=== PATIENT | male | born 1970 | race Caucasian/White ===

== ENCOUNTER 2023-12-04 10:23 | Inpatient (IN) ==
[2023-12-04] MEDS ORDERED: IOPAMIDOL 100 ML BOTTLE IV ONE (10:24)
[2023-12-04] MEDS: 0.9 % SODIUM CHLORIDE 1,000 ML IV ONE (10:50)
[2023-12-04 11:14] LABS: Basophils # (Auto) 0.03 K/mcL (0.00-0.30); Basophils % (Auto) 0.2 % (0.0-2.0); Eosinophils # (Auto) 0.07 K/mcL (0.00-0.70); Eosinophils % (Auto) 0.4 % (0.0-7.0); Hematocrit 44.5 % (40.1-51.0); Hemoglobin 15.4 g/dL (13.7-17.5); Lymphocytes # (Auto) 1.81 K/mcL (1.50-4.80); Mean Cell Volume 101.8 fL (80.0-100.0); Mean Corpuscular HGB Conc 34.6 g/dL (31.0-36.0); Mean Platelet Volume 9.4 fL (8.8-12.5); Monocytes % (Auto) 7.7 % (1.0-12.0); Neutrophils % (Auto) 81.1 % (38.0-78.0); Platelet Count 293 K/mcL (140-440); RBC 4.37 M/mcL (4.63-6.08); Red Cell Distribution Width 14.1 % (11.5-14.5); WBC 18.2 K/mcL (4.5-11.0)
[2023-12-04 11:21] LABS: Alcohol, Blood < 10.1 mg/dL; Alcohol,Blood < 0.010 gm/dL (<0.010)
[2023-12-04 11:23] LABS: ALT/SGPT 59 U/L (<40); AST/SGOT 158 U/L (<40); Albumin/Globulin Ratio 0.8 (1.0-2.3); Alkaline Phosphatase 144 U/L (39-117); Blood Urea Nitrogen 18 mg/dL (6-20); Calcium 9.3 mg/dL (8.6-10.4); Carbon Dioxide 22 mmol/L (22-30); Chloride 85 mmol/L (96-108); Glomerular Filtration Rate 113; Glucose 96 mg/dL (70-105)
[2023-12-04 12:02] LABS: INR 1.2 (0.9-1.1); Prothrombin Time 15.9 sec (11.9-14.5)
[2023-12-04 12:33] LABS: Hepatitis A Antibody IgM Non-Reactive (Non-Reactive); Hepatitis B Surface Antigen Negative (Negative); Hepatitis C Virus Antibody Non-Reactive (Non-Reactive)
[2023-12-04 13:59] LABS: Lymphocytes % 7 % (15-49); Monocytes % (Manual) 5 % (1-12); Platelet Estimate NORMAL (Normal); RBC Morphology NORMAL (Normal); Reactive Lymphocytes 5 % (0-2); Segmented Neutrophils % 83 % (38-78)
[2023-12-04] MEDS ORDERED: POTASSIUM CHLORIDE 20 MEQ TABLET PO PRN ×2 (14:55)
[2023-12-04] MEDS ORDERED: MAGNESIUM SULFATE 2 GM/50 ML BAG IV PRN (14:55)
[2023-12-04] MEDS ORDERED: IPRATROPIUM/ALBUTEROL 3 ML AMPUL.NEB NEB PRN (14:55)
[2023-12-04] MEDS ORDERED: POLYETHYLENE GLYCOL 3350 17 GM PACKET PO PRN (14:55)
[2023-12-04] MEDS ORDERED: POTASSIUM CHLORIDE 40 MEQ in DEXTROSE 5% IN WATER 500 ML IV PRN (14:55)
[2023-12-04] MEDS ORDERED: SENNOSIDES 1 TABLET PO PRN (14:55)
[2023-12-04] MEDS ORDERED: LACTULOSE 20 GM/30 ML ORAL.SOL PO PRN (14:55)
[2023-12-04] MEDS: MULTIVIT,THER IRON,CA,FA & MIN 1 TABLET PO SCH (15:20)
[2023-12-04] MEDS: FOLIC ACID 1 MG TABLET PO SCH (15:20)
[2023-12-04] MEDS: SODIUM CHLORIDE 1 GM TABLET PO SCH (15:21)
[2023-12-04] MEDS: ALBUMIN HUMAN 12.5 GM/50 ML VIAL IV ONE ×2 (15:21→21:55)
[2023-12-04] MEDS: 0.9 % SODIUM CHLORIDE 10 ML SYRINGE IV SCH (15:22)
[2023-12-04 15:43] LABS: Amylase,Peritoneal Fluid 16 U/L; Glucose,Peritoneal Fluid 96 mg/dL; LDH,Peritoneal Fluid 43 U/L; Total Protein,Peritoneal Fluid 1.4 gm/dL
[2023-12-04 16:08] LABS: Monocyte,Peritoneal Fluid 55 %; Neutrophils,Peritoneal Fluid 13 %; Nucleated Cel,Peritoneal Fluid 176 /cumm; RBC,Peritoneal Fluid <50,000 /cumm
[2023-12-04] MEDS: THIAMINE 100 MG/ML VIAL ONE (17:01)
[2023-12-04] MEDS: THIAMINE 100 MG in 0.9 % SODIUM CHLORIDE 50 ML IV SCH (17:02)
[2023-12-04 17:43] LABS: Appearance,Urine CLEAR (Clear); Color,Urine AMBER; Culture Indicated,Urine No; Glucose,Urine (UA) Negative (Negative); Ketones,Urine 5 mg/dL (Negative); Leukocyte Esterase,Urine Negative /uL (Negative); Mucus,Urine MANY /hpf; Nitrate,Urine Negative (Negative); Protein,Urine 30 mg/dL (Negative); Specific Gravity,Urine > 1.060 (1.000-1.035); Urine Blood Negative (Negative); Urine Hyaline Cast 3 /lph (0-2); Urine RBC 0 /hpf (0-3); Urine Squamous Epithelial Cell 0 /hpf (0-4); Urine WBC 0 /hpf (0-4)
[2023-12-04] MEDS: diphenhydrAMINE 25 MG CAPSULE PO PRN (21:55)
[2023-12-04] MEDS: ONDANSETRON 4 MG/2 ML VIAL IV PRN (22:03)
[2023-12-04] MEDS: diphenhydrAMINE 25 MG CAPSULE ONE (22:06)
[2023-12-04] MEDS: MELATONIN 3 MG TABLET PO SCH (22:08)
[2023-12-05 06:25] LABS: Basophils # (Auto) 0.03 K/mcL (0.00-0.30); Basophils % (Auto) 0.2 % (0.0-2.0); Eosinophils % (Auto) 0.7 % (0.0-7.0); Hematocrit 40.4 % (40.1-51.0); Hemoglobin 13.8 g/dL (13.7-17.5); Lymphocytes # (Auto) 1.13 K/mcL (1.50-4.80); Lymphocytes % (Auto) 8.2 % (15.5-49.0); Mean Cell Volume 105.5 fL (80.0-100.0); Mean Corpuscular HGB Conc 34.2 g/dL (31.0-36.0); Mean Platelet Volume 9.4 fL (8.8-12.5); Monocytes # (Auto) 0.96 K/mcL (0.10-0.90); Neutrophils % (Auto) 83.5 % (38.0-78.0); Platelet Count 208 K/mcL (140-440); RBC 3.83 M/mcL (4.63-6.08); Red Cell Distribution Width 14.5 % (11.5-14.5); WBC 13.8 K/mcL (4.5-11.0)
[2023-12-05 07:06] LABS: ALT/SGPT 49 U/L (<40); AST/SGOT 142 U/L (<40); Albumin 2.9 gm/dL (3.2-5.2); Alkaline Phosphatase 110 U/L (39-117); Bilirubin,Direct 3.9 mg/dL (<0.3); Bilirubin,Total 5.7 mg/dL (0.1-1.0); Blood Urea Nitrogen 17 mg/dL (6-20); Calcium 8.7 mg/dL (8.6-10.4); Carbon Dioxide 21 mmol/L (22-30); Chloride 89 mmol/L (96-108); Glomerular Filtration Rate 113; Glucose 98 mg/dL (70-105); Lactate Dehydrogenase 219 U/L (135-225); Phosphorous 2.5 mg/dL (2.5-4.5); Triglycerides 83 mg/dL (<150); Uric Acid 2.9 mg/dL (2.5-8.0)
[2023-12-05] MEDS: FUROSEMIDE 20 MG TABLET PO SCH (10:07)
[2023-12-05] MEDS: ENOXAPARIN 40 MG/0.4 ML SYRINGE SQ SCH (10:07)
[2023-12-05] MEDS: SPIRONOLACTONE 25 MG TABLET PO SCH (10:07)
[2023-12-05] MEDS: THIAMINE 100 MG/ML VIAL ONE (11:13)
[2023-12-05] MEDS: ACETAMINOPHEN 325 MG TABLET PO PRN (14:04)
[2023-12-05] MEDS: SUCRALFATE 1 GM/10 ML ORAL.SUSP PO SCH (14:46)
[2023-12-05] MEDS: PANTOPRAZOLE 40 MG VIAL IV SCH (14:46)
[2023-12-05] MEDS: oxyCODONE IR 5 MG TABLET PO PRN (14:46)
[2023-12-05] MEDS ORDERED: MELATONIN 3 MG TABLET PO SCH (19:00)
[2023-12-06] MEDS: ALBUMIN HUMAN 12.5 GM/50 ML VIAL IV ONE (00:07)
[2023-12-06 04:48] LABS: Sodium, Urine Random < 20 mmol/L
[2023-12-06 04:54] LABS: Osmolality,Urine 624 mOSM/kg (80-1000)
[2023-12-06 06:02] LABS: Basophils # (Auto) 0.02 K/mcL (0.00-0.30); Basophils % (Auto) 0.2 % (0.0-2.0); Eosinophils % (Auto) 0.8 % (0.0-7.0); Hematocrit 35.4 % (40.1-51.0); Lymphocytes # (Auto) 1.17 K/mcL (1.50-4.80); Lymphocytes % (Auto) 9.5 % (15.5-49.0); Mean Corpuscular HGB Conc 33.9 g/dL (31.0-36.0); Mean Platelet Volume 9.4 fL (8.8-12.5); Monocytes # (Auto) 0.79 K/mcL (0.10-0.90); Monocytes % (Auto) 6.4 % (1.0-12.0); Neutrophils % (Auto) 82.5 % (38.0-78.0); Platelet Count 200 K/mcL (140-440); RBC 3.37 M/mcL (4.63-6.08); Red Cell Distribution Width 14.4 % (11.5-14.5); WBC 12.3 K/mcL (4.5-11.0)
[2023-12-06 06:24] LABS: ALT/SGPT 47 U/L (<40); AST/SGOT 119 U/L (<40); Albumin 2.7 gm/dL (3.2-5.2); Alkaline Phosphatase 104 U/L (39-117); Bilirubin,Direct 3.1 mg/dL (<0.3); Bilirubin,Total 4.2 mg/dL (0.1-1.0); Blood Urea Nitrogen 18 mg/dL (6-20); Calcium 8.5 mg/dL (8.6-10.4); Carbon Dioxide 23 mmol/L (22-30); Chloride 92 mmol/L (96-108); Globulin 2.7 gm/dL (2.2-3.7); Glomerular Filtration Rate 106; Glucose 103 mg/dL (70-105); Lactate Dehydrogenase 150 U/L (135-225); Phosphorous 2.3 mg/dL (2.5-4.5); Triglycerides 64 mg/dL (<150); Uric Acid 3.2 mg/dL (2.5-8.0)
[2023-12-06] MEDS ORDERED: FUROSEMIDE 20 MG TABLET PO SCH (09:00)
[2023-12-06] MEDS: ALBUMIN HUMAN 25 GM/100 ML BAG IV SCH (09:13)
[2023-12-06] MEDS: 0.9 % SODIUM CHLORIDE 250 ML IV ONE ×3 (13:34→21:46)
[2023-12-06] MEDS: ALBUMIN HUMAN 25 GM/100 ML BAG IV ONE (21:35)
[2023-12-07 06:18] LABS: Basophils # (Auto) 0.03 K/mcL (0.00-0.30); Basophils % (Auto) 0.3 % (0.0-2.0); Eosinophils % (Auto) 1.1 % (0.0-7.0); Hematocrit 30.1 % (40.1-51.0); Hemoglobin 10.2 g/dL (13.7-17.5); Lymphocytes % (Auto) 9.9 % (15.5-49.0); Mean Cell Volume 105.2 fL (80.0-100.0); Mean Corpuscular HGB Conc 33.9 g/dL (31.0-36.0); Mean Platelet Volume 9.5 fL (8.8-12.5); Monocytes # (Auto) 0.58 K/mcL (0.10-0.90); Monocytes % (Auto) 6.4 % (1.0-12.0); Platelet Count 163 K/mcL (140-440); RBC 2.86 M/mcL (4.63-6.08); Red Cell Distribution Width 14.7 % (11.5-14.5); WBC 9.1 K/mcL (4.5-11.0)
[2023-12-07 06:46] LABS: ALT/SGPT 35 U/L (<40); AST/SGOT 90 U/L (<40); Albumin 3.1 gm/dL (3.2-5.2); Albumin/Globulin Ratio 1.6 (1.0-2.3); Alkaline Phosphatase 97 U/L (39-117); Bilirubin,Direct 2.3 mg/dL (<0.3); Bilirubin,Total 3.5 mg/dL (0.1-1.0); Blood Urea Nitrogen 12 mg/dL (6-20); Calcium 8.5 mg/dL (8.6-10.4); Carbon Dioxide 21 mmol/L (22-30); Chloride 91 mmol/L (96-108); Globulin 1.9 gm/dL (2.2-3.7); Glomerular Filtration Rate 113; Glucose 105 mg/dL (70-105); Lactate Dehydrogenase 179 U/L (135-225); Phosphorous 2.6 mg/dL (2.5-4.5); Triglycerides 53 mg/dL (<150)
[2023-12-07] MEDS: MIDODRINE 5 MG TABLET PO SCH (08:30)
[2023-12-07] MEDS: THIAMINE 100 MG TABLET PO SCH (09:14)
[2023-12-07] MEDS: FUROSEMIDE 20 MG/2 ML VIAL IV ONE (09:14)
[2023-12-07] MEDS: ALBUMIN HUMAN 25 GM/100 ML BAG IV ONE (09:16)
[2023-12-07] MEDS: oxyCODONE IR 5 MG TABLET PO PRN (13:11)
[2023-12-07] MEDS: ALBUMIN HUMAN 50 ML IV ONE (19:24)
[2023-12-07] MEDS: ALBUMIN HUMAN 12.5 GM/50 ML VIAL IV ONE (19:24)
[2023-12-08 06:51] LABS: ALT/SGPT 41 U/L (<40); AST/SGOT 102 U/L (<40); Albumin 3.5 gm/dL (3.2-5.2); Albumin/Globulin Ratio 1.7 (1.0-2.3); Alkaline Phosphatase 111 U/L (39-117); Bilirubin,Direct 2.3 mg/dL (<0.3); Bilirubin,Total 3.4 mg/dL (0.1-1.0); Blood Urea Nitrogen 10 mg/dL (6-20); Calcium 8.7 mg/dL (8.6-10.4); Carbon Dioxide 22 mmol/L (22-30); Chloride 91 mmol/L (96-108); Globulin 2.1 gm/dL (2.2-3.7); Glomerular Filtration Rate 113; Glucose 111 mg/dL (70-105); Lactate Dehydrogenase 134 U/L (135-225); Phosphorous 3.1 mg/dL (2.5-4.5); Triglycerides 51 mg/dL (<150); Uric Acid 3.3 mg/dL (2.5-8.0)
[2023-12-08] MEDS: SPIRONOLACTONE 25 MG TABLET PO SCH (08:28)
[2023-12-08] MEDS: FUROSEMIDE 20 MG/2 ML VIAL IV ONE (09:45)
[2023-12-08] MEDS: ALBUMIN HUMAN 12.5 GM/50 ML VIAL IV ONE (09:45)
[2023-12-09 06:35] LABS: ALT/SGPT 41 U/L (<40); AST/SGOT 105 U/L (<40); Albumin 3.3 gm/dL (3.2-5.2); Albumin/Globulin Ratio 1.6 (1.0-2.3); Alkaline Phosphatase 158 U/L (39-117); Bilirubin,Direct 2.2 mg/dL (<0.3); Bilirubin,Total 3.3 mg/dL (0.1-1.0); Blood Urea Nitrogen 12 mg/dL (6-20); Calcium 8.6 mg/dL (8.6-10.4); Carbon Dioxide 21 mmol/L (22-30); Chloride 93 mmol/L (96-108); Globulin 2.1 gm/dL (2.2-3.7); Glomerular Filtration Rate 113; Glucose 109 mg/dL (70-105); Lactate Dehydrogenase 152 U/L (135-225); Phosphorous 3.2 mg/dL (2.5-4.5); Triglycerides 57 mg/dL (<150); Uric Acid 3.4 mg/dL (2.5-8.0)
[2023-12-09] MEDS: FUROSEMIDE 40 MG TABLET PO SCH (09:53)
[2023-12-09] MEDS: THIAMINE 300 MG in 0.9 % SODIUM CHLORIDE 50 ML IV SCH (11:24)
[2023-12-09] MEDS ORDERED: GADOBENATE DIMEGLUMINE 20 ML/VIAL IV ONE (12:01)
[2023-12-09] MEDS: MIDODRINE 5 MG TABLET PO SCH (17:19)
[2023-12-09] MEDS: oxyCODONE IR 5 MG TABLET PO PRN (17:31)
[2023-12-10] MEDS: ACETAMINOPHEN 325 MG TABLET PO PRN (07:20)
[2023-12-10] MEDS: oxyCODONE IR 5 MG TABLET PO ONE ×2 (07:32→08:26)
[2023-12-10] MEDS ORDERED: THIAMINE 100 MG TABLET PO SCH (09:00)
== END 2023-12-10 07:36 | disposition home or self-care (01) | DRG 433 ==
LOC: ED 10:23 → MEDSUR 14:48
PROVIDERS: ADMIT Internal Medicine; ATTEND Internal Medicine